=== PATIENT | male | born 1940 | race Two or more races ===

== ENCOUNTER 2016-05-04 09:25 | Outpatient (CLI) ==
--- NOTE | 2016-05-04 10:39 | DI ---
EXAM: LEFT RIBS HISTORY: Left rib cage pain FINDINGS: Left ribs four views. Multiple tiny nodules within the lung suggesting calcified granulom as. No acute bony deformity or fracture is identified. General bone density is within normal limit s. IMPRESSION: No rib fracture identified.
== END 2016-05-04 09:26 | disposition home or self-care (01) ==
LOC: RAD 09:25
PROVIDERS: ATTEND Internal Medicine
DX: R07.81 Pleurodynia (principal)

== ENCOUNTER 2016-11-14 14:28 | Emergency (ER) ==
[2016-11-14 14:36] VITALS: BP 148/89; TEMP 100; BMI 29.9
--- NOTE | 2016-11-14 14:53 | ED.PDOC ---
General ED Provider: Dr. NUNO CLAUDIO Chief Complaint: Back Pain Stated Complaint: back pain Time Seen by Physician: 14:30 (seen with alex lopez at all times ) Mode of Arrival: Walk-In Information Source: Patient Exam Limitations: No limitations Primary Care Provider: JAYDON DOTY Nursing and Triage Documentation Reviewed and Agree: Yes Musculoskeletal Complaint Exam - Back Pain Complaint/Exam Mechanism of Injury: Reports: No known trauma Onset/Duration: 14 day Symptoms Are: Still present Initial Severity: Mild Current Severity: Mild (ambulatory negative trauma) Character: Reports: Aching Aggravating: Reports: Movements, Lifting Alleviating: Reports: Rest, Position Associated Signs and Symptoms: Denies: Swelling, Redness, Bruising, Fever, Weakness, Numbness, Tingling, Abdominal pain, Flank pain, Bladder incontinence, Bowel incontinence, Weight loss, Pain with weight bearing Related History: Reports: Similar episode TAD Risk Factors: Reports: None AAA Risk Factors: Reports: None Cauda Equina Risk Factors: Reports: None Related Surgical History: Reports: None Focal Tenderness: No Paraspinal Muscle Tenderness: No Paraspinal Muscle Spasm: No Scoliosis: No Lordosis: No Kyphosis: No SLR Test: Right Negative, Left Negative Hip Motion Testing Pain: Right Negative, Left Negative Focal Weakness: Present: None Focal Sensory Loss: Present: None Gait: Present: Normal Differential Diagnoses: Strain, Sprain Review of Systems - Review Of Systems Constitutional: Reports: No symptoms Eyes: Reports: No symptoms Ears, Nose, Mouth, Throat: Reports: No symptoms Respiratory: Reports: No symptoms Cardiac: Reports: No symptoms GI: Reports: No symptoms : Reports: No symptoms Musculoskeletal: Reports: Back pain Skin: Reports: No symptoms Neurological: Reports: No symptoms Endocrine: Reports: No symptoms Hematologic/Lymphatic: Reports: No symptoms All Other Systems: Reviewed and Negative Past Medical History - Past Medical History Previously Healthy: Yes Endocrine: Reports: Dyslipidemia Cardiovascular: Reports: None Respiratory: Reports: None Hematological: Reports: None Gastrointestinal: Reports: None Genitourinary: Reports: None Neuro/Psych: Reports: None Musculoskeletal: Reports: None Cancer: Reports: None - Surgical History General Surgical History: Reports: None - Family History Family History: Reports: None - Social History Smoking Status: Never smoker Hx Substance Use: No Alcohol Screening: None - Immunizations Tetanus Shot up to Date: No Physical Exam - Physical Exam Appearance: Well-appearing, No pain distress, Well-nourished Eyes: CASEY, EOMI, Conjunctiva clear ENT: Ears normal, Nose normal, Oropharynx normal Respiratory: Airway patent, Breath sounds clear, Breath sounds equal, Respirations nonlabored Cardiovascular: RRR, Pulses normal, No rub, No murmur GI/: Soft, Nontender, No masses, Bowel sounds normal, No Organomegaly Musculoskeletal: Normal strength, ROM intact, No edema, No calf tenderness Skin: Warm, Dry, Normal color Neurological: Sensation intact, Motor intact, Reflexes intact, Cranial nerves intact, Alert, Oriented Psychiatric: Affect appropriate, Mood appropriate Critical Care Note - Critical Care Note Total Time (mins): 0 Course - Course Vital Signs: Temp Pulse Resp BP Pulse Ox 11/14/16 14:29 100 F H 69 16 148/89 H 97 Departure - Departure Time of Disposition: 14:53 (alex present at all times ) Disposition: HOME SELF-CARE Discharge Problem: Backache Instructions: Arthralgia (ED), Low Back Strain (ED), Acute Low Back Pain (ED) Condition: Good Pt referred to PMD for follow-up: Yes Additional Instructions: Please call your Family Physician as soon as possible to schedule a follow-up appointment. Allergies/Adverse Reactions: Allergies acetaminophen [From Midol] Adverse Reaction (Verified 11/14/16 14:36) pamabrom [From Midol] Adverse Reaction (Verified 11/14/16 14:36) Home Medications: Ambulatory Orders Gabapentin 600 mg PO DAILY 11/14/16
== END 2016-11-14 14:59 | disposition home or self-care (01) ==
LOC: ED 14:28
DX: M54.9 Dorsalgia, unspecified (principal)
CPT/HCPCS: 99282

== ENCOUNTER 2016-12-23 12:34 | Outpatient (CLI) | payer OTHER ==
[2016-12-23 13:03] LABS: BASOPHILS % (AUTO) 0.1 % (0.0-3.0); EOSINOPHILS # (AUTO) 0.4 K/ul (0.0-0.7); EOSINOPHILS % (AUTO) 3.9 % (0.0-7.0); HEMATOCRIT 42.5 % (37.0-47.0); HEMOGLOBIN 14.2 g/dl (12.0-16.0); IMMATURE GRANULOCYTE % (AUTO) 0.5 % (0.0-5.0); LYMPHOCYTES # (AUTO) 1.5 K/uL (0.60-3.4); LYMPHOCYTES % (AUTO) 15.5 (10.0-50.0); MEAN CORPUSCULAR HEMOGLOBIN 30.3 pg (27.0-31.0); MEAN CORPUSCULAR HGB CONC 33.4 (31.8-35.4); MEAN CORPUSCULAR VOLUME 90.6 fl (81.0-99.0); MONOCYTES # (AUTO) 0.7 K/uL (0.4-2.0); MONOCYTES % (AUTO) 7.2 (0-10); NEUTROPHILS # (AUTO) 7.1 K/ul (2.0-6.9); NEUTROPHILS % (AUTO) 72.8; PLATELET COUNT 262 10^3/uL (140-440); RED BLOOD COUNT 4.69 10^6/ul (4.20-5.40)
[2016-12-23 13:18] LABS: FLU INTERNAL QC INTERNAL QC VALID; RAPID FLU A NEGATIVE (NEGATIVE); RAPID FLU B NEGATIVE (NEGATIVE)
--- NOTE | 2016-12-23 13:24 | DI ---
EXAM: Chest two views HISTORY: Cough COMPARISON: 05/04/2016 TECHNIQUE: Two views of the chest were performed FINDINGS: No airspace consolidation. Left basilar subsegmental atelectasis and/or scarring. Granulom atous calcification. There is no pleural effusion or pneumothorax. The heart is normal in size. Th e mediastinal contour is normal. There are no acute abnormalities of the bones. IMPRESSION: Left basilar subsegmental atelectasis and/or scarring. No acute cardiopulmonary process .
[2016-12-23 14:21] LABS: ALBUMIN 3.3 g/dL (3.4-5.0); ALBUMIN/GLOBULIN RATIO 0.87; BILIRUBIN,TOTAL 0.6 mg/dL (0.00-1.20); BUN/CREATININE RATIO 12.63; CALCIUM 9.9 mg/dL (8.2-10.2); CREATININE 0.95 mg/dL (0.60-1.30); TOTAL PROTEIN 7.1 g/dL (5.8-8.1)
== END 2016-12-23 12:35 | disposition home or self-care (01) ==
LOC: EDSEX 12:34 → RAD 12:34
PROVIDERS: ATTEND Internal Medicine
DX: R05 Cough (principal); R50.9 Fever, unspecified; J40 Bronchitis, not specified as acute or chronic
CPT/HCPCS: 36415; 80053; 85025; 87804

== ENCOUNTER 2017-01-24 09:50 | Outpatient (CLI) ==
--- NOTE | 2017-01-24 10:36 | CT ---
Exam: CT of the lumbar spine without intravenous contrast. Comparison: Lumbar spine x-ray performed 03/23/2011. CT abdomen pelvis performed 04/23/2014. Reason for exam: Sciatica. FINDINGS: No acute fracture. There is a similar appearing grade 1 anterior listhesis of L5 on S1 th at does not appear significantly changed when compared to the radiograph performed on 03/23/2011. Th ere is a Schmorl's node at L1. The vertebral body heights are well maintained. There is moderate de generative disease with intervertebral body disc space height loss and facet hypertrophy. T11-T12: There is mild to moderate foraminal stenosis with a broad-based disc bulge causing impressi on on the thecal sac and mild central canal narrowing. T12-L1: Small broad-based disc bulge with mild to moderate central canal and foraminal narrowing. L1-L2: Small broad-based disc bulge with mild central canal and foraminal narrowing. L2-L3: Broad-based disc bulge with mild to moderate central canal and foraminal narrowing. L3-L4: Broad-based disc bulge with mild to moderate central canal and foraminal narrowing. L4-L5: Broad-based disc bulge with moderate central canal and foraminal narrowing. L5-S1: Grade 1 anterior listhesis with a broad-based disc bulge and moderate to marked central canal and foraminal narrowing. Impression: 1. No acute fracture in the lumbar spine. 2. Similar appearing grade 1 anterior listhesis of L5 on S1. 3. Moderate multilevel degenerative disease with central canal and foraminal narrowing. If clinical concern exists for radiculopathy or myelopathy, MRI may be performed.
== END 2017-01-24 09:51 | disposition home or self-care (01) ==
LOC: RAD 09:50
PROVIDERS: ATTEND Internal Medicine
DX: M54.32 Sciatica, left side (principal)

== ENCOUNTER 2017-06-06 15:37 | Outpatient (CLI) ==
--- NOTE | 2017-06-06 15:59 | DI ---
EXAM: LEFT HIP, 2 VIEWS HISTORY: Hip pain FINDINGS: No fracture or joint dislocation. Articular cartilage width is within normal limits for age. Bone density and soft tissues are within normal limits. IMPRESSION: Within normal limits.
--- NOTE | 2017-06-06 16:11 | DI ---
EXAM: Lumbar spine radiographs. HISTORY: Low back pain. COMPARISON: None available. TECHNIQUE: Three views of the lumbar spine. FINDINGS: Last rib-bearing vertebral body is designated T12. Grade 1 anterolisthesis of L4 on L5 by approximately 0.7 cm noted. Anterolisthesis of L3 on L4 by approximately 0.3 cm noted. Vertebral b raquel heights are maintained. There is moderate loss of disc height at L4-5 and severe loss of disc he ight off the S1. Facet arthropathy is greater in the lower lumbar spine. No fracture identified. S acral arcuate lines are intact. Atherosclerotic calcifications are present. Since the prior study, there has been no significant interval change IMPRESSION: Stable degenerative changes of the lumbar spine.
== END 2017-06-06 15:38 | disposition home or self-care (01) ==
LOC: RAD 15:37
PROVIDERS: ATTEND Internal Medicine
DX: M54.5 Low back pain (principal); M25.552 Pain in left hip

== ENCOUNTER 2018-10-23 10:07 | Outpatient (CLI) | payer OTHER ==
--- NOTE | 2018-10-23 10:42 | DI ---
Exam: Two views of the chest. Comparison: 12/23/2016. Reason for exam: Cough, short of breath. FINDINGS: Similar appearing left basilar atelectasis/pneumonia. Otherwise, no pneumothorax or pleur al effusion. The cardiac silhouette is unchanged. Impression: Similar appearing left basilar atelectasis/pneumonia versus scarring. This finding does not appear s ignificantly changed when compared to imaging performed on 12/23/2016.
--- NOTE | 2018-10-23 10:43 | DI ---
Exam: Two views of the thoracolumbar spine. Comparison: 06/06/2017. Reason for exam: Back pain. FINDINGS: Similar appearing grade 1 anterior listhesis of L3 on L4 and L4 on L5. No vertebral body height loss is seen. Degenerative changes are seen with osteophyte formation and facet hypertrophy. Atherosclerotic disease is seen within the aorta. Impression: Similar appearing anterior listhesis of L3 on L4 and L4 on L5 without evidence of acute fracture. Fi ndings appear similar to imaging performed on 06/06/2017.
[2018-10-23 13:10] VITALS: BMI 29.7
== END 2018-10-23 10:08 | disposition home or self-care (01) ==
LOC: RAD 10:07
PROVIDERS: ATTEND Internal Medicine
DX: R06.02 Shortness of breath (principal); R05 Cough; M54.9 Dorsalgia, unspecified; M79.10 Myalgia, unspecified site
CPT/HCPCS: 36415; 80053; 85025

== ENCOUNTER 2018-10-23 12:46 | Inpatient (IN) ==
[2018-10-23] MEDS ORDERED: VISTARIL INJ IM PRN (13:05)
[2018-10-23] MEDS ORDERED: ATROPINE SULFATE PFS IVP PRN (13:05)
[2018-10-23] MEDS ORDERED: TYLENOL PO PRN (13:05)
[2018-10-23] MEDS ORDERED: NITROSTAT SL PRN (13:05)
[2018-10-23 13:10] VITALS: BMI 29.7
[2018-10-23] MEDS ORDERED: NON-FORMULARY MEDICATION (Tizanidine Hcl [Zanaflex] 4 MG) PO PRN (13:27)
[2018-10-23] MEDS ORDERED: TUSSIONEX PO SCH (13:30)
[2018-10-23] MEDS ORDERED: ZANAFLEX PO PRN (13:49)
[2018-10-23] MEDS: DYAZIDE PO SCH (14:04)
[2018-10-23] MEDS: NEURONTIN PO SCH ×3 (14:05→21:13)
[2018-10-23] MEDS: SOLU-CORTEF 100 MG IVP SCH ×2 (14:05→21:13)
[2018-10-23] MEDS: ROCEPHIN 1 GM PREMIX 1 GM in PREMIX 50 ML D5W 1 BAG IV SCH (14:08)
[2018-10-23] MEDS: DEXTROSE 5%-1/2NS IV SOLUTION 1,000 ML IV SCH (14:08)
--- NOTE | 2018-10-23 17:25 | CT ---
EXAM: CT chest without contrast HISTORY: Acute bronchitis COMPARISON: None TECHNIQUE: CT chest performed without intravenous contrast. Coronal and sagittal reformatted images obtained FINDINGS: Thoracic inlet unremarkable. Heart normal in size. Coronary calcifications. No pericard ial effusion. Aorta normal in caliber. Mild to moderate atherosclerosis. Small hiatal hernia. Vicenta luation for lymphadenopathy limited without contrast. No lymphadenopathy identified. Calcified lymp h nodes, consistent with old granulomatous disease. Visualized portion upper abdomen demonstrates no acute abnormality. Probable left parapelvic cysts. No acute abnormalities of the bones. Degenerat jocy change in the spine. Central airway patent. Bilateral lower airway thickening. Bibasilar groun d-glass infiltrates. Granulomatous calcification. No pleural effusion. No pneumothorax. IMPRESSION: 1. Bibasilar ground-glass infiltrates, likely representing pneumonitis/pneumonia. Associated bilate ral lower airway thickening, suggesting small airways infection/inflammation 2. Coronary calcifications. Atherosclerosis.
[2018-10-23] MEDS: PRAVACHOL PO SCH (21:13)
[2018-10-23] MEDS: TUSSIONEX PO SCH (21:13)
[2018-10-24] MEDS: SOLU-CORTEF 100 MG IVP SCH ×3 (04:49→20:35)
[2018-10-24] MEDS: DEXTROSE 5%-1/2NS IV SOLUTION 1,000 ML IV SCH ×2 (04:50→05:44)
[2018-10-24] MEDS: DUONEB NEB SCH ×4 (04:55→19:50)
[2018-10-24] MEDS ORDERED: ASPIRIN EC PO SCH (08:00)
--- NOTE | 2018-10-24 08:13 | PCM.PROG ---
Attending Provider: ATTENDING PROVIDER: Dr. JAYDON DOTY This patient is seen with Seda Armstrong, Nurse Practitioner. DATE OF SERVICE: 10/24/18 SUBJECTIVE: This 78 year old WHITE/ F was hospitalized 10/23/18 resting comfortably. Cough improved. No pleuritic pain this morning. The patient is feeling less short of breath. REVIEW OF SYSTEMS: CONSTITUTIONAL: Weakness. No night sweats. No fatigue, malaise, lethargy. No fever or chills. HEENT: Eyes: No visual changes. No eye pain. No eye discharge. ENT: No runny nose. No epistaxis. No sinus pain. No odynophagia. No congestion. RESPIRATORY: Cough. Shortness of breath. No hemoptysis. CARDIOVASCULAR: No angina symptoms. No CHF symptoms. Pleuritic pain. No atypical chest pain for CAD. No palpitations. No orthopnea.. GASTROINTESTINAL: No abdominal pain. No nausea or vomiting. No diarrhea or constipation. No hematemesis. No hematochezia. GENITOURINARY: No urgency. No frequency. No dysuria. No hematuria. No obstructive symptoms. No discharge. No pain. No significant abnormal bleeding. MUSCULOSKELETAL: No musculoskeletal pain; no joint swelling. NEUROLOGICAL: Awake, alert, oriented to time, place and person. No headache. No neck pain. No syncope. No seizures. No dizziness. PSYCHIATRIC: Not anxious. No depression. No suicidal thoughts. No homicidal thoughts. SKIN: No rash. No lesions. No wounds. ENDOCRINE: No unexplained weight loss. No weight gain. HEMATOLOGIC/LYMPHATIC: No anemia. No purpura. No petechiae. No prolonged or excessive bleeding. No palpable lymph nodes. PHYSICAL EXAMINATION: GENERAL: The patient is awake, alert and oriented, lying/sitting in bed in no distress. VITAL SIGNS: Temperature 97.8 F, Pulse 58, Respiratory Rate 16, BP 129/82, Pulse Ox 97% HEENT: Head normocephalic, atraumatic. Eyes: Extraocular muscles are intact. Pupils are equal, round and reactive to light and accommodation. Ears: No lesions. Nose appeared normal. Throat: No exudate or erythema. NECK: Supple. No JVD, no carotid bruit. No lymphadenopathy or thyromegaly. LUNGS: Diminished breath sounds with bilateral rhonchi. Percussion note normal. Chest symmetrical. HEART: S1, S2, no S3. No murmurs. No cyanosis or clubbing. No ascites. Pulses: Dorsalis pedis and posterior tibial pulses +1 to +2 both sides. ABDOMEN: Soft. Non-tender. Bowel sounds active. No CVA tenderness. No mass felt. EXTREMITIES: No edema. Full range of motion of all extremities, equal. NEUROLOGIC: No focal deficit. Cranial nerves II through XII are grossly intact. No headache, no double vision or headache. SKIN: Not dry. Intact. Turgor-normal. LYMPHATIC: No palpable lymph nodes/no lymphedema. MUSCULOSKELETAL: Normal joints with no swelling. Muscle tone is normal. LAB REVIEW: 10/23/18 13:05 10/23/18 13:32 10/23/18 21:16: Total Creatine Kinase 69.1, Troponin I < 0.012 10/23/18 14:24: Urine Color Yellow, Urine Clarity Clear, Urine pH 5.0, Ur Specific [place] <=1.005, Urine Protein Negative, Urine Glucose (UA) Negative, Urine Ketones Negative, Urine Blood Trace-lysed, Urine Nitrite Negative, Urine Bilirubin Negative, Urine Urobilinogen 0.2, Ur Leukocyte Esterase Negative, Urine Microscopic WBC 0-2, Ur Squamous Epith Cells 0-2 10/23/18 13:32: Sodium 137.7, Potassium 4.17, Chloride 99.8, Carbon Dioxide 29.5 , Anion Gap 12.57, BUN 15.8, Creatinine 1.17, Estimated GFR (MDRD) 45.00, BUN/ Creatinine Ratio 13.50, Glucose 92.6, Calcium 9.40, Total Bilirubin 0.65, AST 28.2, ALT 22.7, Alkaline Phosphatase 78.1, Total Creatine Kinase 67.9, Troponin I < 0.012, Total Protein 7.51, Albumin 4.27, Globulin 3.24, Albumin/Globulin Ratio 1.31 10/23/18 13:16: Puncture Site Rrad, O2 Saturation 93.0 L, ABG pH 7.387, ABG pCO2 40.9, ABG pO2 69.0 L, ABG HCO3 24.6, ABG Total CO2 26, ABG Base Excess 0, Ulises Test +, FiO2 % 21.0 10/23/18 13:05: WBC 7.82, RBC 4.86, Hgb 14.7, Hct 45.2, MCV 93.0, MCH 30.2, MCHC 32.5, RDW Coeff of Allan 11.9, Plt Count 210, Immature Gran % (Auto) 0.4, Neut % (Auto) 74.0, Lymph % (Auto) 10.2, [place] % (Auto) 7.9, Eos % (Auto) 7.4 H, Baso % (Auto) 0.1, Immature Gran # (Auto) 0.0, Neut # (Auto) 5.8, Lymph # (Auto ) 0.8, [place] # (Auto) 0.6, Eos # (Auto) 0.6, Baso # (Auto) 0.0 ASSESSMENT: 1. Acute pneumonitis, dehydration improving. 2. Shortness of breath, resolved. PLAN: 1. D/C IV fluids. 2. Continue IV steroids and antibiotics. Plan and coordination of the patient's care discussed in the presence of Robotics Application Engineer and nurse. CONDITION: Stable SCRIBED BY: PRIYANKA FLORES Railroad Track Inspector scribed while in presence of service performed by Dr. Doty/Seda Armstrong APRN on 10/24/18 ([id number])
[2018-10-24] MEDS: CALCIUM 500 + VIT D 200 MG TABLET PO SCH (08:33)
[2018-10-24] MEDS: NEURONTIN PO SCH ×3 (08:33→20:12)
[2018-10-24] MEDS: TUSSIONEX PO SCH ×2 (08:33→20:20)
[2018-10-24] MEDS: ASPIRIN CHEWABLE PO SCH (08:33)
[2018-10-24] MEDS: OMEGA-3 FISH OIL PO SCH (08:33)
[2018-10-24] MEDS: DYAZIDE PO SCH (08:33)
[2018-10-24] MEDS: ROCEPHIN 1 GM PREMIX 1 GM in PREMIX 50 ML D5W 1 BAG IV SCH (08:34)
--- NOTE | 2018-10-24 10:19 | HP ---
DATE OF SERVICE: 10/23/18 REASON FOR HOSPITALIZATION/HISTORY OF PRESENT ILLNESS: 78 year old female came in complaining of cough, congestion and pleuritic pain times 2 weeks with yellowish sputum. The patient has been extremely fatigued. Running fever. The patient's appetite is poor. PAST MEDICAL HISTORY: Dyslipidemia Hypertension Osteoarthritis Chronic kidney disease, stage 3 Osteoarthritis bilateral knee B12 def. PAST SURGICAL HISTORY: Cyst ovarian a year ago REVIEW OF SYSTEMS: CONSTITUTIONAL: Fever, Fatigue. HEENT: Sinus drainage, no sore throat. RESPIRATORY: Cough, no congestion. CARDIOVASCULAR: Atypical chest pain for coronary artery disease, atypical with cough. No angina, CHF symptoms, palpitations or shortness of breath. GASTROINTESTINAL: No melena or abdominal pain. No GERD. GENITOURINARY: No hematuria, no prostatism, no polyuria. WATER SUPERVISOR: No blackout, no dizziness, no headache, no double vision. MUSCULOSKELETAL: Osteoarthritis pain, no joint swelling. ENDOCRINE: No weight loss, no weight gain. SKIN: Not dry, no rash. PSYCHIATRIC: Not anxious, no depression, no suicidal thoughts, no homicidal thoughts. SOCIAL HISTORY: Marital Status: . Alcohol Usage: No. Tobacco Usage: No. FAMILY HISTORY: Father Mother Brother 3 Sister 4 MEDICATIONS: Neurontin 600mg PO three times a day PRN Tizanidine 4mg PRN Pravachol 40mg PO at night Triamterene-Hydrochlorothiazide 37.5-25mg PO three times per week take five times a week Aspirin 81mg PO daily Calcium +Vitamin D Fish Oil 1000mg once a day ALLERGIES: Midol PHYSICAL EXAMINATION: V/S: Pulse 78, blood pressure 128/76, temperature 99, O2 saturation 95%. Height 5'9, BMI 26.2, weight 177.4. GENERAL APPEARANCE: Oriented times three. Skin dry. HEENT: Normal. NECK: No JVP, no bruits. RESPIRATORY: Lungs are clear. Mild wheeze, expiratory rub. CARDIOVASCULAR: S1, S2, no S3, no murmurs. No cyanosis, clubbing. No ascites. GI/ABDOMEN: No tenderness. Bowel sounds are active. EXTREMITIES: edema, pulses +1, equal. WATER SUPERVISOR: Deep tendon reflexes, sensory, motor and gait all normal. RECTAL: Patient refused./PELVIC: advised yearly. Patient refused mammogram. ASSESSMENT: 1. Acute bronchitis/pneumonitis 2. Pleuritic pain 3. B12 deficiency 4. Right knee pain 5. Low back pain 6. Left sciatica osteoarthritis 7. Dyslipidemia 8. Osteoarthritis 9. Hypertension 10.Plantar fascitis 11.Chronic kidney disease, stage 3 12.Bilateral knee osteoarthritis, Dr. Shra Whitaker PLAN: 1. Admit regular 2. Routine telemetry 3. X-ray chest done today 4. CT scan chest without contrast 5. 1000cc D5 1/2 normal saline 8 hourly 6. Sputum for culture and sensitivity 7. Blood cultures times two 8. Rocephin 1 gram IV piggyback 24 hourly 9. Tussionex one to two teaspoons PO twice times a day for cough 10.ABG 11.Neurontin 600mg PO three times a day 12.Dyazide 1gram PO 13.100mg Solu-Cortef Q 8 hourly TIME SPENT: More than 70 minutes. MTDD
[2018-10-24] MEDS: PRAVACHOL PO SCH (20:13)
[2018-10-25] MEDS: DUONEB NEB SCH ×2 (04:50→10:03)
[2018-10-25 04:51] VITALS: BP 121/71; TEMP 97.8
[2018-10-25] MEDS: SOLU-CORTEF 100 MG IVP SCH (05:42)
[2018-10-25] MEDS ORDERED: K-DUR PO STA ×2 (08:04→10:36)
[2018-10-25] MEDS ORDERED: PROAIR HFA IH PRN (08:04)
[2018-10-25] MEDS: ROCEPHIN 1 GM PREMIX 1 GM in PREMIX 50 ML D5W 1 BAG IV SCH (08:53)
[2018-10-25] MEDS: NEURONTIN PO SCH (08:56)
[2018-10-25] MEDS: OMEGA-3 FISH OIL PO SCH (08:56)
[2018-10-25] MEDS: ASPIRIN CHEWABLE PO SCH (08:56)
[2018-10-25] MEDS: DYAZIDE PO SCH (08:56)
[2018-10-25] MEDS: CALCIUM 500 + VIT D 200 MG TABLET PO SCH (08:56)
[2018-10-25] MEDS: TUSSIONEX PO SCH (08:59)
--- NOTE | 2018-10-25 09:09 | PCM.PROG ---
Attending Provider: ATTENDING PROVIDER: Dr. JAYDON DOTY This patient is seen with Seda Armstrong, Nurse Practitioner. DATE OF SERVICE: 10/25/18 SUBJECTIVE: This 78 year old WHITE/ F was hospitalized 10/23/18. Resting comfortably. No fever. She has been up and about. She would like to go home. Cough nonproductive. REVIEW OF SYSTEMS: CONSTITUTIONAL: No night sweats. No fatigue, malaise, lethargy. No fever or chills. HEENT: Eyes: No visual changes. No eye pain. No eye discharge. ENT: No runny nose. No epistaxis. No sinus pain. No odynophagia. No congestion. RESPIRATORY: Cough and congestion. No hemoptysis. No shortness of breath. CARDIOVASCULAR: No angina symptoms. No CHF symptoms. No atypical chest pain for CAD. No palpitations. No orthopnea.. GASTROINTESTINAL: No abdominal pain. No nausea or vomiting. No diarrhea or constipation. No hematemesis. No hematochezia. GENITOURINARY: No urgency. No frequency. No dysuria. No hematuria. No obstructive symptoms. No discharge. No pain. No significant abnormal bleeding. MUSCULOSKELETAL: No musculoskeletal pain; no joint swelling. NEUROLOGICAL: Awake, alert, oriented to time, place and person. No headache. No neck pain. No syncope. No seizures. No dizziness. PSYCHIATRIC: Not anxious. No depression. No suicidal thoughts. No homicidal thoughts. SKIN: No rash. No lesions. No wounds. ENDOCRINE: No unexplained weight loss. No weight gain. HEMATOLOGIC/LYMPHATIC: No anemia. No purpura. No petechiae. No prolonged or excessive bleeding. No palpable lymph nodes. PHYSICAL EXAMINATION: GENERAL: The patient is awake, alert and oriented, lying/sitting in bed in no distress. VITAL SIGNS: Temperature 97.8 F, Pulse 62, Respiratory Rate 16, BP 121/71, Pulse Ox 96% HEENT: Head normocephalic, atraumatic. Eyes: Extraocular muscles are intact. Pupils are equal, round and reactive to light and accommodation. Ears: No lesions. Nose appeared normal. Throat: No exudate or erythema. NECK: Supple. No JVD, no carotid bruit. No lymphadenopathy or thyromegaly. LUNGS: Diminished breath sounds with improving bilateral rhonchi. Clear to auscultation. Percussion note normal. Chest symmetrical. HEART: S1, S2, no S3. No murmurs. No cyanosis or clubbing. No ascites. Pulses: Dorsalis pedis and posterior tibial pulses +1 to +2 both sides. ABDOMEN: Soft. Non-tender. Bowel sounds active. No CVA tenderness. No mass felt. EXTREMITIES: No edema. Full range of motion of all extremities, equal. NEUROLOGIC: No focal deficit. Cranial nerves II through XII are grossly intact. No headache, no double vision or headache. SKIN: Not dry. Intact. Turgor-normal. LYMPHATIC: No palpable lymph nodes/no lymphedema. MUSCULOSKELETAL: Normal joints with no swelling. Muscle tone is normal. LAB REVIEW: 10/25/18 05:29 10/25/18 05:29 10/25/18 05:29: Sodium 139.2, Potassium 3.25 L, Chloride 101.9, Carbon Dioxide 26.0, Anion Gap 14.55, BUN 20.9 H, Creatinine 1.07, Estimated GFR (MDRD) 49.00, BUN/Creatinine Ratio 19.53, Glucose 124.0 H, Calcium 9.09, Total Bilirubin 0.25 , AST 23.9, ALT 20.3, Alkaline Phosphatase 57.8, Total Protein 6.45, Albumin 3.67, Globulin 2.78, Albumin/Globulin Ratio 1.32 10/25/18 05:29: WBC 11.15 H, RBC 4.30, Hgb 13.0, Hct 39.8, MCV 92.6, MCH 30.2, MCHC 32.7, RDW Coeff of Allan 12.0, Plt Count 225, Immature Gran % (Auto) 0.6, Neut % (Auto) 84.2, Lymph % (Auto) 11.2, [place] % (Auto) 3.9, Eos % (Auto) 0.0, Baso % (Auto) 0.1, Immature Gran # (Auto) 0.1, Neut # (Auto) 9.4 H, Lymph # ( Auto) 1.3, [place] # (Auto) 0.4, Eos # (Auto) 0.0, Baso # (Auto) 0.0 ASSESSMENT: Please see below. 1. Acute pneumonitis, dehydration improving. 2. Shortness of breath, resolved. 3. Hypokalemia. PLAN: 1. Discharge home today. 2. Omnicef 300 mg b.i.d. for 7 days. 3. Prednisone 10 mg b.i.d. for 5 days. 4. Potassium 40 Audie now and 40 Audie before discharge. 5. ProAir Inhaler one to two puffs q. four hours. 6. The patient is to be seen in followup on 10/30/18. Plan and coordination of the patient's care discussed in the presence of Ornamental Metal Erector and nurse. CONDITION: Stable SCRIBED BY: PRIYANKA FLORES Vb Net Developer scribed while in presence of service performed by Dr. Doty/Seda Armstrong APRN on 10/25/18 ([id number])
--- NOTE | 2018-10-25 10:06 | CM.DICTOOL ---
ADMISSION: 10/23/18 12:46 DISCHARGE: 10/25/2018 DATE OF SERVICE: 10/25/18 FINAL DIAGNOSIS PNEUMONITIS ACUTE BRONCHITIS HYPOKALEMIA HYPERTENSION DYSLIPIDEMIA OSTEOARTHRITIS LAST VITALS Temp Pulse Resp BP Pulse Ox 97.8 F 62 16 121/71 96 10/25/18 04:48 10/25/18 04:48 10/25/18 04:48 10/25/18 04:48 10/25/18 04:48 TAKE THESE MEDICATIONS AT HOME Albuterol Sulfate (Proair Hfa) 2 puff IH Q4H PRN PRN Reason: shortness of air Last Admin: 10/25/18 08:56 Dose: 2 puff Aspirin (Aspirin Chewable) 81 mg PO DAILYWM [facility] Last Admin: 10/25/18 08:56 Dose: 81 mg Calcium/Vitamin D (Calcium 500 + Vit D 200 Mg Tablet) 1 each PO DAILY [facility] Last Admin: 10/25/18 08:56 Dose: 1 each Fish Oil ([place]-3 Fish Oil) 1,000 mg PO DAILY [facility] Last Admin: 10/25/18 08:56 Dose: 1,000 mg Gabapentin (Neurontin) 600 mg PO TID [facility] Last Admin: 10/25/18 08:56 Dose: 600 mg Omnicef 300mg PO BID x7 days Pravastatin Sodium (Pravachol) 40 mg PO BEDTIME [facility] Last Admin: 10/24/18 20:13 Dose: 40 mg Prednisone 10mg po bid x5 days Tizanidine HCl (Zanaflex) 4 mg PO TID PRN PRN Reason: SPASMS Triamterene/HCTZ (Dyazide) 37.5-25MG PO 1 cap PO DAILY [facility] Last Admin: 10/25/18 08:56 Dose: 1 cap OTC Cough Syrup (Delsym, Robitussin, or Nyquil) as directed PRN cough ALLERGIES acetaminophen [From Midol] Adverse Reaction (Verified 11/14/16 14:36) pamabrom [From Midol] Adverse Reaction (Verified 11/14/16 14:36) DISCONTINUED MEDICATIONS NONE NEW PRESCRIPTIONS: PREDNISONE 10MG PO BID X5 DAYS OMNICEF 300MG PO BID X7 DAYS ALBUTEROL HFA 1-2 PUFFS Q4-6H PRN WORK EXCUSE THROUGH TUESDAY SMOKING: NEVER SMOKER DISEASE SPECIFIC EDUCATION: PNEUMONITIS ACUTE BRONCHITIS ALBUTEROL INHALER CARDIAC DIET FOLLOW-UP APPOINTMENT LAB REVIEW: 10/25/18 05:29 10/25/18 05:29 10/25/18 05:29: Sodium 139.2, Potassium 3.25 L, Chloride 101.9, Carbon Dioxide 26.0, Anion Gap 14.55, BUN 20.9 H, Creatinine 1.07, Estimated GFR (MDRD) 49.00, BUN/Creatinine Ratio 19.53, Glucose 124.0 H, Calcium 9.09, Total Bilirubin 0.25 , AST 23.9, ALT 20.3, Alkaline Phosphatase 57.8, Total Protein 6.45, Albumin 3.67, Globulin 2.78, Albumin/Globulin Ratio 1.32 10/25/18 05:29: WBC 11.15 H, RBC 4.30, Hgb 13.0, Hct 39.8, MCV 92.6, MCH 30.2, MCHC 32.7, RDW Coeff of Allan 12.0, Plt Count 225, Immature Gran % (Auto) 0.6, Neut % (Auto) 84.2, Lymph % (Auto) 11.2, Milam % (Auto) 3.9, Eos % (Auto) 0.0, Baso % (Auto) 0.1, Immature Gran # (Auto) 0.1, Neut # (Auto) 9.4 H, Lymph # ( Auto) 1.3, Milam # (Auto) 0.4, Eos # (Auto) 0.0, Baso # (Auto) 0.0 PLAN: DISCHARGE HOME TODAY, 10/25/2018. DIET: CARDIAC DIET ACTIVITY: INDEPENDENT WITH ADLS FOLLOW-UP: DR. DOTY / DOLLY KOHLI, COMPLAINT INVESTIGATOR TUESDAY OCTOBER 30, 2018 @ 09:30AM CODE STATUS: FULL CODE IS A&OX3. SHE IS AGREEABLE WITH THE PLAN TO DISCHARGE HOME TODAY. INSTRUCTED PT TO BE OFF WORK THROUGH TUESDAY WHEN SHE WOULD FOLLOW-UP WITH OUR OFFICE AND DISCUSS RETURNING TO WORK. WILL PROVIDE WORK EXCUSE. TELEMETRY NSR. DIMINISHED BREATH SOUNDS, PT HAS INTERMITTENT PRODUCTIVE COUGH WITH SCANT AMOUNTS OF CLEAR/WHITE SPUTUM. NO SOA NOTED. BOWEL SOUNDS ACTIVE, ABDOMEN SOFT AND NONTENDER. PT IS UP AD KISHAN, CONTINENT OF BOWEL AND BLADDER WITH STRESS INCONTINENCE OF URINE AT TIMES. SKIN INTACT, HYDRATION STATUS GOOD. MD DOLLY ROCK APRN
--- NOTE | 2018-10-26 11:06 | ECHO2D ---
Date of Exam: 10/25/18 Ordering Physician: DR. JAYDON DOTY Room #: 120 Reason for Echo: SYSTOLIC MURMUR M-Mode Normal Adult Results LV Dimensions Normal Adult Results AoV Opening excursions >1.6 >1.6 LVEDD-base- 3.5-5.8 4.3 Ao root dimensions 2.0-3.7 2.7 LVESD-base- 3.1-4.6 L. Atrium dimensions 1.9-3.8 3.8 Post. Wall thickness 0.8-1.1 1.2 IV septum (thickness) 0.7-1.2 1.2 Post. Wall excursion 0.72-1.3 NORMAL Septal motion NORMAL Systolic motion R. Ventricular cavity 1.5-2.0 NORMAL LVEF 60% 52% Paradoxical septal wall motion NORMAL 2-D : 2-D M Mode Echocardiogram was performed using apical four chamber and left parasternal long and short axis views. Mitral, tricuspid and aortic valves appear to be normal. Contractility of the left ventricle seems to be normal, so is the cavity size. Left atrial cavity size and aortic root appear to be normal. There is no pericardial effusion. There is no thrombus noted in the left ventricular or left aortic cavity. No mitral valve prolapse noted. M-MODE: MV: NORMAL AV: NORMAL TV: NORMAL PV: CHAMBER SIZE: NORMAL WALL MOTION: NORMAL PERICARDIUM: NORMAL INTERPRETATION: 1. BORDERLINE LEFT VENTRICULAR HYPERTROPHY 2. NORMAL LEFT VENTRICULAR CONTRACTILITY 3. NORMAL VALVES MTDD
--- NOTE | 2018-10-27 10:57 | DS ---
DATE OF SERVICE: 10/25/18 FINAL DIAGNOSIS: PNEUMONITIS ACUTE BRONCHITIS HYPOKALEMIA HYPERTENSION DYSLIPIDEMIA OSTEOARTHRITIS LAST VITALS: Temp Pulse Resp BP Pulse Ox 97.8 F 62 16 121/71 96 10/25/18 04:48 10/25/18 04:48 10/25/18 04:48 10/25/18 04:48 10/25/18 04:48 DISCHARGE INSTRUCTIONS: DISCHARGE HOME TODAY, 10/25/2018. FOLLOW-UP:DR. DOTY / DOLLY KOHLI, [place], , TUESDAY OCTOBER 30, 2018 @ 09:30AM. CODE STATUS: FULL CODE TAKE THESE MEDICATIONS AT HOME: Albuterol Sulfate (Proair Hfa) 2 puff IH Q4H PRN Aspirin (Aspirin Chewable) 81 mg PO DAILYWM [facility] Calcium/Vitamin D (Calcium 500 + Vit D 200 Mg Tablet) 1 each PO DAILY [facility] Fish Oil ([place]-3 Fish Oil) 1,000 mg PO DAILY [facility] Gabapentin (Neurontin) 600 mg PO TID [facility] Omnicef 300mg PO BID x7 days Pravastatin Sodium (Pravachol) 40 mg PO BEDTIME [facility] Prednisone 10mg po bid x5 days Tizanidine HCl (Zanaflex) 4 mg PO TID PRN Triamterene/HCTZ (Dyazide) 37.5-25MG PO 1 cap PO DAILY [facility] OTC Cough Syrup (Delsym, Robitussin, or Nyquil) as directed PRN cough ALLERGIES: acetaminophen [From Midol] Adverse Reaction (Verified 11/14/16 14:36) pamabrom [From Midol] Adverse Reaction (Verified 11/14/16 14:36) DISCONTINUED MEDICATIONS: NONE NEW PRESCRIPTIONS: PREDNISONE 10MG PO BID X5 DAYS OMNICEF 300MG PO BID X7 DAYS ALBUTEROL HFA 1-2 PUFFS Q4-6H PRN WORK EXCUSE THROUGH TUESDAY SMOKING: NEVER SMOKER DISEASE SPECIFIC EDUCATION: PNEUMONITIS ACUTE BRONCHITIS ALBUTEROL INHALER CARDIAC DIET FOLLOW-UP APPOINTMENT DIET: CARDIAC DIET ACTIVITY: INDEPENDENT WITH ADLS HOSPITAL COURSE: This is a white female who was a direct admit from our office with cough and congestion. She has been battling this for several weeks and has been treated as an outpatient twice with oral antibiotics and oral steroids. She is weak and has been short of breath. She states that she is just not recovering well at all. She was admitted and CT of the chest showed bilateral early pneumonia/ pneumonitis. BUN was slightly elevated initially showing mild dehydration. She was put on normal saline IV fluids, started on Rocephin IV as well as Zithromax along with IV Solu-Cortef 100mg Q 12 hours. She was also started on DUO NEBS Q 6 hours. Breathing improved after about the first 36 hours. She remained afebrile and was eating well. Cough still remained nonproductive. On the second day Potassium did drop to 3.2 likely due to Hemodilution. She was given a total of 80meq of Potassium prior to discharge. She does not have a nebulizer at home and did not really want to get one. She was started on a ProAir inhaler in the hospital and I have instructed her to take one to two puffs at least three times a day regularly and wean herself down to two and then once daily as her cough continues to improve. She is remain off work until at least through next Tuesday. We will followup with her in the office next Tuesday. She is to stay inside out of the heat and use her inhaler. She will discharge her on Omnicef 300mg BID for the next 7 days along with Prednisone 10mg BID for 5 days. TIME SPENT: More than 60 minutes. VICTOR HUGO
--- NOTE | 2018-10-27 13:30 | PN ---
DATE OF SERVICE: 10/25/18 SUBJECTIVE: The patient was seen and examined with Nurse Practitioner. The patient's bronchitis has improved. Cardiovascular status is stable. Her echo for systolic murmur is normal with normal valvular structures. CONDITION: Stable. TIME SPENT: More than 30 minutes. Plan and coordination of the patient's care discussed in the presence of nurse. VICTOR HUGO
--- NOTE | 2018-10-27 13:31 | PN ---
10/23/18: Level 5 10/24/18: Intermediate 10/25/18: D as in discharge MTDD
== END 2018-10-25 11:06 | disposition home or self-care (01) | DRG 195 ==
LOC: MEDSURG B 12:46
PROVIDERS: ADMIT Internal Medicine; ATTEND Internal Medicine
DX: J18.9 Pneumonia, unspecified organism (principal); E53.8 Deficiency of other specified B group vitamins; E78.5 Hyperlipidemia, unspecified; E87.6 Hypokalemia; E86.0 Dehydration; M25.561 Pain in right knee; M54.5 Low back pain; M54.32 Sciatica, left side; M72.2 Plantar fascial fibromatosis; M15.9 Polyosteoarthritis, unspecified; M17.0 Bilateral primary osteoarthritis of knee; N18.3 Chronic kidney disease, stage 3 (moderate); I10 Essential (primary) hypertension; R06.02 Shortness of breath; R07.81 Pleurodynia
CPT/HCPCS: 36415; 80053; 81001; 82550; 82803; 84484; 85025; 87040; 93005; 93010; 94640